=== PATIENT | male | born 1960 | race Caucasian/White ===

== ENCOUNTER 2021-07-26 01:20 | Observation (INO) ==
[2021-07-26] MEDS ORDERED: Naloxone 0.4 MG/ML INJ IVP PRN (03:16)
[2021-07-26] MEDS ORDERED: Acetaminophen 325 MG TABLET PO PRN (03:16)
[2021-07-26] MEDS ORDERED: Ondansetron 4 MG/2 ML VIAL IVP PRN (03:16)
[2021-07-26] MEDS ORDERED: Aspirin Enteric Coated 325 MG Tablet PO ONE (03:51)
[2021-07-26 04:34] LABS: Bilirubin,Urine Negative (Negative); Blood,Urine Negative (Negative); Clarity,Urine Clear (Clear); Color,Urine Colorless (Yellow); Glucose,Urine (UA) Normal (Normal); Ketones,Urine Negative (Negative); Leukocyte Esterase,Urine Negative (Negative); Nitrite,Urine Negative (Negative); Protein,Urine Negative (Neg-Trace); Specific Gravity,Urine > 1.030 (1.010-1.025); Urobilinogen,Urine Normal (Normal)
[2021-07-26 05:02] LABS: Basophils # 0.1 K/mcL (0.0-0.2); Basophils % 0.7 %; Eosinophils # 0.2 K/mcL (0.0-0.6); Eosinophils % 2.2 %; Hematocrit 46.3 % (37.5-50.1); Hemoglobin 16.8 g/dL (12.9-16.9); Immature Granulocytes % 0.5 % (0-4); Lymphocytes # 1.8 K/mcL (0.6-4.6); Lymphocytes % 24.4 %; Mean Corpuscular HGB Conc 36.3 g/dL (31.6-35.5); Mean Corpuscular Hemoglobin 32.7 pg (28.0-33.3); Mean Corpuscular Volume 90.1 fL (83.0-100.0); Mean Platelet Volume 10.2 fL (9.4-12.4); Monocytes # 0.7 K/mcL (0.0-1.3); Monocytes % 9.4 %; Neutrophils # 4.6 K/mcL (1.6-8.9); Platelet Count 209 K/mcL (140-400); Red Blood Count 5.14 M/mcL (4.19-5.50); Red Cell Distribution Width 11.8 % (11.5-14.5); Segmented Neutrophils % 62.8 %; White Blood Count 7.3 K/mcL (4.3-11.1)
[2021-07-26 05:10] LABS: INR 1.2
[2021-07-26 05:22] LABS: Estimated Average Glucose 94 mg/dl; Hemoglobin A1C 4.9 %
[2021-07-26 05:34] LABS: BUN/Creatinine Ratio 13 (6-26); Blood Urea Nitrogen 11 mg/dL (8-23); Calcium 9.5 mg/dL (8.6-10.3); Carbon Dioxide 23 mEq/L (23-29); Chloride 108 mEq/L (98-107); Chol/HDL Ratio 4.1 (0-4.9); Cholesterol 176 mg/dL (< 200); Glucose 97 mg/dL (70-105); HDL Cholesterol 43 mg/dL (40-59); LDL Cholesterol,Calculated 112 mg/dL (< 100); Magnesium 2.2 mg/dL (1.6-2.6); Osmolality,Calculated 287 (280-300); Potassium 3.9 mEq/L (3.5-5.1); Sodium 139 mEq/L (136-145); Triglycerides 106 mg/dL (< 150); eGFR For African Americans > 60 (> 60); eGFR For Non-African Americans > 60 (> 60)
[2021-07-26 14:28] VITALS: BP 112/71; PULSE 62; TEMP 98; O2SAT 94
== END 2021-07-26 18:20 | disposition home or self-care (01) ==
LOC: 3BNU → SUATTDRO 02:55
PROVIDERS: ADMIT Family Medicine; ATTEND Registered Nurse

== ENCOUNTER 2021-08-12 17:45 | Observation (INO) ==
[2021-08-12] MEDS ORDERED: Naloxone 0.4 MG/ML INJ IVP PRN (20:57)
[2021-08-12] MEDS ORDERED: Ondansetron 4 MG/2 ML VIAL IVP PRN (20:57)
[2021-08-12] MEDS ORDERED: Ketorolac 30 MG/ML VIAL IVP PRN (20:57)
[2021-08-12] MEDS ORDERED: Melatonin 3 MG TABLET PO PRN (20:57)
[2021-08-12] MEDS ORDERED: 0.9 % Sodium Chloride 1,000 ML IVC SCH (21:00)
[2021-08-12] MEDS: Piperacillin/Tazobactam 3.375 GM in 0.9 % Sodium Chloride Mini Bag 100 ML IVPB SCH (23:10)
[2021-08-13 02:47] LABS: Hematocrit 40.2 % (37.5-50.1); Hemoglobin 14.1 g/dL (12.9-16.9); Mean Corpuscular HGB Conc 35.1 g/dL (31.6-35.5); Mean Corpuscular Hemoglobin 32.6 pg (28.0-33.3); Mean Corpuscular Volume 92.8 fL (83.0-100.0); Mean Platelet Volume 10.2 fL (9.4-12.4); Platelet Count 158 K/mcL (140-400); Red Blood Count 4.33 M/mcL (4.19-5.50); Red Cell Distribution Width 11.9 % (11.5-14.5); White Blood Count 12.8 K/mcL (4.3-11.1)
[2021-08-13 02:55] LABS: BUN/Creatinine Ratio 19 (6-26); Blood Urea Nitrogen 18 mg/dL (8-23); Calcium 8.6 mg/dL (8.6-10.3); Carbon Dioxide 26 mEq/L (23-29); Chloride 108 mEq/L (98-107); Glucose 99 mg/dL (70-105); Osmolality,Calculated 290 (280-300); Potassium 3.8 mEq/L (3.5-5.1); Sodium 139 mEq/L (136-145); eGFR For African Americans > 60 (> 60); eGFR For Non-African Americans > 60 (> 60)
[2021-08-13 03:05] LABS: INR 1.3; Prothrombin Time 14.2 Seconds (9.4-12.1)
[2021-08-13 03:07] LABS: Activated Partial Thrombo Time 29.8 Seconds (26.0-36.0)
[2021-08-13] MEDS ORDERED: *HR* HYDROmorphone PF 0.5 MG/0.5 ML SYRINGE IVP PRN (07:08)
[2021-08-13] MEDS ORDERED: *HR* FentaNYL (PF) 100 MCG/2 ML VIAL IVP PRN (07:08)
[2021-08-13] MEDS ORDERED: Acetaminophen IV 1,000 MG/100 ML BAG IVPB PRN (07:09)
[2021-08-13] MEDS: Piperacillin/Tazobactam 3.375 GM in 0.9 % Sodium Chloride Mini Bag 100 ML IVPB SCH (07:13)
[2021-08-13] MEDS ORDERED: Lidocaine -MPF 2% 2 ML VIAL ONE (07:45)
[2021-08-13] MEDS ORDERED: Ondansetron 4 MG/2 ML VIAL ONE (07:45)
[2021-08-13] MEDS ORDERED: *HR* HYDROMORPHONE 2 MG/ML VIAL ONE (07:45)
[2021-08-13] MEDS ORDERED: *HR* FentaNYL (PF) 100 MCG/2 ML VIAL ONE (07:45)
[2021-08-13] MEDS ORDERED: *HR* Rocuronium Bromide 50 MG/5 ML VIAL ONE (07:45)
[2021-08-13] MEDS ORDERED: *HR* Propofol 200 MG/20 ML VIAL IVP ONE (07:46)
[2021-08-13] MEDS ORDERED: Lidocaine HCL 4 ML Topical Solution (Laryng-O-Jet Kit Sterile Pak) TP ONE (07:47)
[2021-08-13] MEDS ORDERED: Acetaminophen IV 1,000 MG/100 ML BAG IVPB ONE (07:53)
[2021-08-13] MEDS ORDERED: EPHEDrine 50 MG/ML VIAL ONE (08:49)
[2021-08-13] MEDS ORDERED: Sugammadex Sodium 200 MG/2 ML VIAL IV ONE (09:17)
[2021-08-13] MEDS ORDERED: Naloxone 0.4 MG/ML INJ IVP PRN (10:17)
[2021-08-13] MEDS ORDERED: Ketorolac 30 MG/ML VIAL IVP PRN (10:17)
[2021-08-13] MEDS ORDERED: Ondansetron 4 MG/2 ML VIAL IVP PRN (10:17)
[2021-08-13 13:58] VITALS: BP 117/70; PULSE 82; TEMP 98.3; O2SAT 96
[2021-08-13] MEDS ORDERED: Piperacillin/Tazobactam 3.375 GM in 0.9 % Sodium Chloride Mini Bag 100 ML IVPB SCH (16:00)
[2021-08-13] MEDS ORDERED: Melatonin 3 MG TABLET PO PRN (21:00)
[2021-08-14] MEDS ORDERED: Aspirin 81 MG TAB.CHEW PO SCH (09:00)
== END 2021-08-13 15:42 | disposition home or self-care (01) ==
LOC: 3ANU
PROVIDERS: ADMIT Student in an Organized Health Care Education/Training Program; ATTEND Student in an Organized Health Care Education/Training Program